=== PATIENT | male | born 1985 | race Two or more races ===

== ENCOUNTER 2024-09-29 14:04 | Emergency (ER) | payer BC, SELFPAY ==
[2024-09-29 14:06] VITALS: BP 200/122
[2024-09-29 14:43] VITALS: BP 191/113; BMI 25.7
--- NOTE | 2024-09-29 14:48 | ED.GENMED ---
History of Present Illness
General
Chief Complaint: Male Genito-Urinary Symptoms
Source: patient
Exam Limitations: none
Time Seen by Provider: 09/29/24 14:41
History of Present Illness
History of Present Illness:
39-year-old male presents with left testicular swelling and discomfort over the past 3 weeks and persistent. Symptoms started after intercourse. He thought intercourse was more rough than usual. He denies any hematuria or dysuria. He is
and monogamous. He denies fevers. He denies dysuria. No abdominal pain. He has had issues similar to this in the past and had an ultrasound about a year and a half ago but the ultrasound was performed after the symptoms have resolved the
ultrasound was negative. He recently saw urologist and was discharged
Past History
Past History
ED Past Medical History: HTN and Psychiatric (Anxiety)
ED Past Surgical History: None
Social History
Tobacco: Former smoker
Alcohol: Occasional
Personal:
Living: with family
Phy Exam
Physical Exam
Physical Exam:
General: Well-appearing male no acute respiratory distress
HEENT normocephalic atraumatic
exam: Circumcised male. Left testicle tender without obvious swelling no masses or lumps. Reflex intact no discharge
Extremities: No cyanosis
Abdomen is soft nontender
Course
Orders/Labs/Results
Orders:
Orders
09/29/24 14:48
Scrotum US [US Scrotum] Urgent
Comment:
Reason For Exam: left testicular pain
09/29/24 14:50
Urinalysis Reflex To Culture Urgent
Vital Signs
Initial and Last Documented VS:
Initial Vital Signs
Temp Pulse Resp BP Pulse Ox
97.9 F 97 16 200/122 100
09/29/24 14:06 09/29/24 14:06 09/29/24 14:06 09/29/24 14:06 09/29/24 14:06
Last Documented Vital Signs
Temp Pulse Resp BP Pulse Ox
97.9 F 97 16 191/113 100
09/29/24 14:06 09/29/24 14:06 09/29/24 14:06 09/29/24 14:43 09/29/24 14:06
MDM/Problems Addressed
Differential Diagnosis Includes:
Left testicular pain. Differential could include epididymitis versus varicocele versus hydrocele versus testicular mass versus torsion
Ultrasound pending
Urinalysis ordered
*Critical Care Note
Total Time (30-74mins, 75-104mins- exclusive of procedures): Not Applicable
Update Note
Update Note:
Ultrasound scrotum negative. Reassured patient. Recommend he follow-up with urology as planned. Recommend formfitting underwear. Stable for discharge
ED Attending Note
-
Portions of this chart may have been created with voice recognition software.� Occasional wrong word or��sound alike� substitutions may have occurred due to the inherent limitations of voice recognition software.
Discharge Plan
Departure
Patient Disposition: Home (Routine Discharge)
Date of Disposition: 09/29/24
Time of Disposition: 15:56
Patient with high blood pressure during this ER visit?: No
Discharge Problem:
Left testicular pain
Prescriptions:
No Action
No Current Medications
0
Activity Restrictions/Additional Instructions:
Use formfitting underwear. Use scrotal support if needed. Use Tylenol for pain peer return if worse otherwise follow-up with urology as planned
Interventions
Interventions:
*Risk Screen - Suicide Last Done: 09/29/24 14:06
*General Assessment Last Done: 09/29/24 14:39
*Neglect/Abuse Screening Last Done: 09/29/24 14:06
*ED- Fall Risk Assessment Last Done: 09/29/24 14:38
*ED COVID-19 Vaccine History Last Done: 09/29/24 14:38
ED-Male Genitourinary Assessment Last Done: 09/29/24 14:39
Discharge Date and Time
Print Language: FRENCH
[2024-09-29 16:30] VITALS: BP 158/86
[2024-09-29 16:55] LABS: Urine Albumin Negative (Neg - Trace); Urine Bilirubin Negative (Negative); Urine Character Clear (Clear); Urine Color Yellow; Urine Glucose Negative (Negative); Urine Ketone Negative (Negative); Urine Leukocyte Negative (Negative); Urine Nitrite Negative (Negative); Urine Occult Blood Negative (Negative); Urine Specific Gravity 1.005 (<1.030); Urine Urobilinogen Negative (Neg - 1+)
== END 2024-09-29 17:15 | disposition home or self-care (01) ==
LOC: EMR 14:04
PROVIDERS: Physician Assistant; EMERGENCY PHYSICIAN Emergency Medicine
DX: N50.812 Left testicular pain (principal); Z87.891 Personal history of nicotine dependence
CPT/HCPCS: 99285; 76870; 81003; 93976